=== PATIENT | female | born 1945 | race Caucasian/White ===

== ENCOUNTER → 2021-05-14 | Outpatient (CLI) | payer MEDICARE | END | disposition home or self-care (01) | LOC: ROC 09:01 | PROVIDERS: ATTEND Radiology Radiation Oncology | DX: C78.02 Secondary malignant neoplasm of left lung (principal); E78.00 Pure hypercholesterolemia, unspecified; E07.9 Disorder of thyroid, unspecified; Z85.3 Personal history of malignant neoplasm of breast; Z86.711 Personal history of pulmonary embolism; Z90.710 Acquired absence of both cervix and uterus; Z96.642 Presence of left artificial hip joint; Z96.651 Presence of right artificial knee joint | CPT/HCPCS: G0463 ==